=== PATIENT | female | born 1965 | race American Indian/Alaskan Native ===

== ENCOUNTER 2025-05-20 08:31 | Outpatient (AMB) | payer BC, SELFPAY ==
[2025-05-20 09:00] VITALS: BP 145/84; PULSE 97; RESP 18; TEMP 36.4; O2SAT 96; BMI 40.4
--- NOTE | 2025-05-20 09:00 | ORTHONT_ITS ---
Vital signs 05/20/25 09:00 Height 1.63 m Height Method Measured Weight 106.679 kg Weight Measurement Method Standing Scale BMI 40.4 BP 145/84 H Blood Pressure Source Automatic Cuff Blood Pressure Location Left Upper Arm Position Sitting Respiration 18 Pulse 97 Pulse Source Monitor Temp 97.6 F Temp Source Temporal Artery Scan Pulse Oximetry (%) 96 Oxygen Delivery Method Room Air Med/Allergies Allergies & Medications Allergies alprazolam Allergy (Severe, Verified 05/20/25 09:02) Rash amoxicillin Allergy (Severe, Verified 05/20/25 09:02) Rash chlorhexidine Allergy (Severe, Verified 05/20/25 09:02) Rash clindamycin Allergy (Severe, Verified 05/20/25 09:02) hives, swelling , rash clotrimazole Allergy (Severe, Verified 05/20/25 09:02) Rash codeine Allergy (Severe, Verified 05/20/25 09:02) hives, swelling, rash cyclobenzaprine Allergy (Severe, Verified 05/20/25 09:02) hives, swelling, rash erythromycin base Allergy (Severe, Verified 05/20/25 09:02) rash, hives, swelling escitalopram Allergy (Severe, Verified 05/20/25 09:02) rash, hives, swelling hydrocortisone Allergy (Severe, Verified 05/20/25 09:02) rash, itching hydroxyzine Allergy (Severe, Verified 05/20/25 09:02) rash, swelling, hives lisinopril Allergy (Severe, Verified 05/20/25 09:02) rash, swelling, hives sertraline Allergy (Severe, Verified 05/20/25 09:02) hives, swelling, rash sulfamethoxazole Allergy (Severe, Verified 05/20/25 09:02) rash, hives, swelling trimethoprim Allergy (Severe, Verified 05/20/25 09:02) rash, swelling, hives soap Allergy (Verified 05/20/25 09:02) Rash deodorants Allergy (Uncoded 05/20/25 09:02) chemical burn tape Allergy (Uncoded 05/20/25 09:02) Rash Medication Reconciliation naproxen 500 mg tablet 500 mg PO BID #60 tabs 05/20/25 [Rx] pantoprazole 40 mg tablet,delayed release 40 mg PO QDAY 05/20/25 [History Confirmed 05/20/25] triamterene 75 mg-hydrochlorothiazide 50 mg tablet 1 tab PO QAM 05/20/25 [History Confirmed 05/20/25] Exam Exam Patient is in no acute distress and is cooperative with the examination today. Breathing is nonlabored. In no respiratory distress. Patient has no paraspinal tenderness. Spinal deformity cannot be appreciated. The gait of the patient is nonantalgic Bilateral extremities were evaluated and demonstrates sensation intact to light touch. Palpable pedal pulses are present. No significant edema is present. Bilateral knees were examined and the patient has full strength and range of motion.. The left hip was examined. Patient was able to flex to 90 degrees, adduct to 30 degrees, abduct to 40 degrees, internally rotate to 20 degrees, and externally rotate to 20 degrees. Patient has a negative logroll. Stinchfield is negative. The patient is tender to palpation over the greater troches The right hip was examined. Patient was able to flex to 90 degrees, adduct to 30 degrees, abduct to 40 degrees, internally rotate to 20 degrees, and externally rotate to 20 degrees. Patient is tender to palpation over the greater trochanter X-rays were reviewed by me. This demonstrates minimal arthritis. Joint spaces are well-preserved Assessment and Plan Problem List (1) Trochanteric bursitis of both hips: Status: Acute Plan: ASSESSMENT AND PLAN 1. Trochanteric bursitis: The hip joints are in optimal condition, negating the need for a hip replacement. However, trochanteric bursitis is present, a condition that often affects women with wider pelvises due to irritation of the bursa. Three potential treatment options were discussed: injections, anti-inflammatories, and physical therapy. Preference was expressed for injections and anti- inflammatories over physical therapy. A prescription for an anti-inflammatory medication will be sent to the pharmacy. Additionally, injections in both hips will be administered today. The anti- inflammatory medication is similar to ibuprofen and should not cause drowsiness. The patient was informed about possible side effects, although they are rare. Recommend hip bursa cortisone injection as patient would like to proceed with conservative treatment at this time. The risks and benefits of the procedure were reviewed with the patient and patient gave verbal consent to continue with the procedure. Procedure: performed by Dr. Mccord Using sterile technique the left hip bursa was thoroughly prepped with alcohol prep, and approximately 1 cc of Depo-Medrol 80 and 4 cc of 0.25% ropivacaine was injected without resistance. The patient tolerated the procedure well. Recommend hip bursa cortisone injection as patient would like to proceed with conservative treatment at this time. The risks and benefits of the procedure were reviewed with the patient and patient gave verbal consent to continue with the procedure. Procedure: performed by Dr. Mccord Using sterile technique the right hip bursa was thoroughly prepped with alcohol prep, and approximately 1 cc of Depo-Medrol 80 and 4 cc of 0.25% ropivacaine was injected without resistance. The patient tolerated the procedure well. Office Procedures GNS Level of Care Nursing/Assessment Patient Status: Initial/New Patient Nursing Assessment/Reassesment: Medication Reconciliation, Update PMH in EMR and Vital Signs Coordination of Care: Complex Care and Chronic Disease 1-5, Education Complex Pt/Fam, Consent,records obtained, informed consent, Results/Orders obtained and Staff clarify orders New Patient Charge New Patient Point Assignment: [id number] New Patient Point Charge: GIMP TACKER Level 3 ([id number]) Surgical Proc/IM SQ injection Minor Surgical Procedure: Yes (HIP INJECTION ) Medication Given Medication Given Medication Given: Yes Documented Dose Given: 2 Route: Infiitration Medication Given Medication Given Medication Given: Yes Documented Dose Given: 8 Route: Infiitration Office Meds methylprednisolone acetate 80 mg/mL suspension for injection Performing Provider: Sukhjinder Mccord MD Performing Location: [facility] Administered by: Sukhjinder Mccord MD on 05/20/25 09:43 Dose Route Admin Location Dispensed Lot Number Expiration Date Pack age [facility] Graduate Recruiter 160 mg intra-articular KNEE 2 mL [id number] 02/[birth year] [address]-1 [id number] [employer] ropivacaine (PF) 2 mg/mL (0.2 %) injection solution Performing Provider: Sukhjinder Mccord MD Performing Location: [facility] Administered by: Sukhjinder Mccord MD on 05/20/25 09:43 Dose Route Admin Location Dispensed Lot Number Expiration Date Pack age [facility] Graduate Recruiter 40 mL Infiltration KNEE 40 mL [id number] 08/13/27 89837-832-62 [id number] [facility] Intake Visit Data Collection New Patient or Established: New Patient (never been to [facility]) Reason for Visit:: BILATERAL HIP PAIN Seen by Clinical Staff ONLY (RN/MA): No 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 PCP or OBGYN visit in last 3 months: Yes Hx Now: No Do You Feel Safe at Home: Yes Authorities Contacted: N/A Questionairres Past Medical History Past Medical History Have you ever been diagnosed with any of the following: Neurological Problems Seizures: No Cardiology Problems Hypercholesterolemia: Yes (TAKES MED) Congestive Heart Failure: No Hypertension: Yes (TAKES MED) Respiratory Problems Chronic Obstructive Pulmonary Disease (COPD): No Sleep Apnea: Yes (HAD SLEEP TEST NO CPAP) Stomache/Intestinal Problems Hepatitis: No Gall Bladder Disease: Yes (LAP) Colorectal Cancer: No Gastroesophageal Reflux Disease: Yes (ACID REFLUX) Obesity: Yes Genital/Urinary Problems Renal Disease: No Reproductive Problems Breast Cancer: No Endometriosis: No Pelvic Inflammatory Disease: No Previous Pregnancies: Yes (X8) Uterine Prolapse: No Musculoskeletal Problems Bone Cancer: No Arthritis: Yes (bilateral knees replacement) Endocrine Problems Diabetes Mellitus Type 1: No Diabetes Mellitus Type 2: No Psychologic Problems Depression: Yes Anxiety: Yes Other Problems Hospitalization: No Down Syndrome: No Developmental Delay: No Shingles: No Falls: Yes (FALL 05/07/18 [facility]) Blood Transfusions: No Blood Transfusion Reaction: No Anesthesia Reactions: No Organ Transplant: No Chemotherapy: No Radiation Therapy: No Hyperbaric Therapy: No MRSA: No VRSA: No Vancomycin-Resistant Enterococci: No Chicken Pox: Yes Clostridium Difficile: No Cervical Cancer: No Lung Cancer: No Ovarian Cancer: No Surgical History Hysterectomy: No Subjective Visit Visit for: new patient and hip Immunization / Flu Flu Vaccine in the Last 12 Months: Yes Flu Vaccine Exclusion Criteria: Already Received History of Present Illness Chief complaint: BILATERAL HIP PAIN HISTORY OF PRESENT ILLNESS ISukhjinder, have obtained verbal consent from the patient, to be recorded during this encounter which may include, but not limited to, medical history, examination, treatment plans, and relevant health information.? Patient was informed that recording will be read and reviewed by myself before inclusion in the medical chart. The patient presents today with bilateral hip pain. She reports experiencing discomfort in both hips, with the right hip being more bothersome. The pain is localized to the joint area and does not interfere with her ability to sleep on her side. She has not sought any medical attention for this issue previously. She is not currently on prednisone or any other medication for this condition. She has not tried injections, physical therapy, or any type of anti-inflammatory for bilateral hip pain. She is able to apply pressure without exacerbating the pain. However, the pain intensifies during ambulation, limiting her mobility and necessitating frequent stops. She expresses a preference against physical therapy as a treatment option. She is currently taking pantoprazole and triamterene for blood pressure. The pain is on the lateral aspect of her hip PAST SURGICAL HISTORY: She has already had left and right total knee replacements by Dr. Duenas in [place]. Personal History Red flag PMH: none BMI Counceling provided: Yes Pain Pain level (0-10): 8 Pain location: posterior Pain quality: sharp Pain timing: increases with activity Associated signs & symptoms: numbness Ambulatory data Ambulatory device: none Treatments Number of previous injections: 0 Improvement with previous injections: No Number of Physical Therapy sessions: 0 Improvement with PT: No Improvement with NSAIDS: no Review of Systems Review of Systems: All systems negative unless otherwise noted in HPI.
== END 2025-05-20 09:16 | disposition home or self-care (01) ==
LOC: HODSRG 08:31
PROVIDERS: PCP Family Medicine; Referring Provider Family Medicine; Supervising Provider Orthopaedic Surgery Adult Reconstructive Orthopaedic Surgery; Visit Provider Orthopaedic Surgery Adult Reconstructive Orthopaedic Surgery
DX: M25.552 Pain in left hip (principal); M25.551 Pain in right hip; M70.62 Trochanteric bursitis, left hip; M70.61 Trochanteric bursitis, right hip; Z96.653 Presence of artificial knee joint, bilateral; I10 Essential (primary) hypertension; E66.9 Obesity, unspecified; Z68.41 Body mass index [BMI] 40.0-44.9, adult
CPT/HCPCS: 20610; 99203; J1010; J2795; G0463